=== PATIENT | male | born 1985 | race Caucasian/White ===

== ENCOUNTER 2022-06-28 14:13 | Emergency (ER) | payer BC ==
[~2022-06-28] VITALS: Ht 180.3 cm; Wt 79.5 kg
[2022-06-28 14:58] VITALS: BP 119/83; TEMP 98.1
[2022-06-28] MEDS ORDERED: BACTRIM DS 8001 TAB PO (17:00)
[2022-06-28 17:21] VITALS: PULSE 64
== END 2022-06-28 17:21 | disposition home or self-care (01) ==
LOC: COL.ER 14:13
DX: S62.662A Nondisplaced fracture of distal phalanx of right middle finger, initial encounter for closed fracture (principal); F17.200 Nicotine dependence, unspecified, uncomplicated; Z28.310 Unvaccinated for COVID-19; W23.1XXA Caught, crushed, jammed, or pinched between stationary objects, initial encounter